=== PATIENT | male | born 1935 | race Caucasian/White ===

== ENCOUNTER 2020-04-22 08:12 | Outpatient (CLI) | payer MEDICARE, OTHER, SELFPAY | END 2020-04-22 08:13 | disposition home or self-care (01) | LOC: WOUND 08:16 | PROVIDERS: Family Provider Family Medicine; PCP Family Medicine; Visit Provider Nurse Practitioner Family | DX: I96 Gangrene, not elsewhere classified (principal); L89.312 Pressure ulcer of right buttock, stage 2 | CPT/HCPCS: 11042; 87070; 87176; 87205; G0463 ==

== ENCOUNTER 2020-05-13 09:46 | Outpatient (CLI) | payer MEDICARE, OTHER, SELFPAY | END 2020-05-13 09:47 | disposition home or self-care (01) | LOC: WOUND 09:49 | PROVIDERS: Family Provider Family Medicine; PCP Family Medicine; Visit Provider Nurse Practitioner Family | DX: Z09 Encounter for follow-up examination after completed treatment for conditions other than malignant neoplasm (principal) | CPT/HCPCS: G0463 ==

== ENCOUNTER 2020-06-06 17:02 | Emergency (ER) | payer MEDICARE, OTHER, SELFPAY ==
[2020-06-06 17:06] VITALS: BP 216/96; PULSE 125; RESP 32; TEMP 36.8; O2SAT 96; BMI 23.0
--- NOTE | 2020-06-06 17:19 | ECG_ITS ---
[facility] Test Date: 2020-06-06 Pat Name: Otoniel Beard Department: Room: Gender: Male Temporary Office Assistant: : [id number] Requested By: Beba Pereira Order Number: [id number] Alex MD: Nae Orourke M.D. Measurements Intervals [place] Rate: 66 P: 50 [place]: 153 QRS: -9 QRSD: 132 T: 30 QT: 398 QTc: 419 Interpretive Statements SINUS RHYTHM INTRAVENTRICULAR CONDUCTION DELAY [130+ ms QRS DURATION] POSSIBLE LATERAL MYOCARDIAL INFARCTION , OF INDETERMINATE AGE [30 ms Q WAVE IN I/aVL/V5/V6] Compared to ECG 02/22/2018 09:58:12 Intraventricular conduction delay now present Myocardial infarct finding now present Sinus bradycardia no longer present Electronically Signed On 06-06-2020 20:07:16 CDT by Nae Orourke M.D. [email or web address]
--- NOTE | 2020-06-06 17:20 | XRR_ITS ---
PROCEDURE INFORMATION: Exam: XR Chest Exam date and time: 06/06/2020 5:37 PM Age: 84 years old Clinical indication: Shortness of breath; Additional info: SOB TECHNIQUE: Imaging protocol: XR of the chest Views: 1 view. COMPARISON: CR Chest 1 [place] [id number] 02/18/2018 7:00 AM FINDINGS: Lungs: Well inflated and clear. Pleural spaces: Unremarkable. No pleural effusion. No pneumothorax. Heart/Mediastinum: The cardiac shadow is normal in size. Bones/joints: No acute abnormality. XR/XR chest 1V portable [id number] IMPRESSION: No acute findings.
--- NOTE | 2020-06-06 17:35 | CTR_ITS ---
PROCEDURE INFORMATION: Exam: CT Abdomen And Pelvis With Contrast Exam date and time: 06/06/2020 6:36 PM Age: 84 years old Clinical indication: Abdominal pain; Generalized; Patient HX: C/O abd pain w distention; Additional info: Abd distention, pain, HX of hernia TECHNIQUE: Imaging protocol: Computed tomography of the abdomen and pelvis with contrast. Radiation optimization: All CT scans at this facility use at least one of these dose optimization techniques: automated exposure control; mA and/or kV adjustment per patient size (includes targeted exams where dose is matched to clinical indication); or iterative reconstruction. Contrast material: OMNI 300; Contrast volume: 95 ml; Contrast route: INTRAVENOUS (IV); COMPARISON: CR Hip 2-3v RIGHT wwo Pelv* [id number] 10/01/2015 11:24 AM RADIATION DOSE METRICS: Total DLP (mGy-cm): 1722.76 FINDINGS: Lungs: The visualized lung bases are clear. Liver: A 2.6 cm low-density lesion in the left hepatic lobe appears benign and does not require dedicated imaging follow-up. The liver is otherwise normal in appearance. Gallbladder and bile ducts: Multiple small calcified gallstones. No signs of acute cholecystitis. Pancreas: No evidence of mass. No ductal dilation. Spleen: No splenomegaly or mass. Adrenal glands: Normal. Kidneys and ureters: A 1 cm simple inferior left renal cyst does not require further imaging. A 1.7 cm inferior right renal cyst does not require further imaging. A 2.3 cm cystic lesion in the superior right kidney with some peripheral calcification and distortion of the adjacent renal parenchyma. No urinary tract stones, hydroureter or hydronephrosis. Stomach and bowel: Scattered diverticula throughout the colon. No signs of acute diverticulitis. No focal bowel wall mass or thickening. No signs of obstruction. Appendix: No evidence of appendicitis. Intraperitoneal space: No free air. No free fluid or evidence of abscess. Vasculature: Multiple systemic vascular calcifications. Lymph nodes: No lymphadenopathy. Urinary bladder: Normal CT appearance. Reproductive: Prostate gland is mildly enlarged at 4.8 cm and contains nonspecific calcification. Bones/joints: Status post right hip arthroplasty. Moderate degenerative changes of the left hip. Moderate to severe degenerative changes of the spine. Soft tissues: Fat containing inguinal hernias, greater on the left. Very small fat containing periumbilical hernia. CT/CT abdomen pelvis w con* [id number] IMPRESSION: 1. Scattered diverticulosis without signs of diverticulitis. The moderate amount of formed stool throughout the colon. 2. A 2.3 cm cystic lesion in the superior right kidney with some peripheral calcification is indeterminate. This may treatment changes of a renal lesion or indeterminate cystic lesion. If desired a can be further investigated with renal ultrasound or MRI. 3. Multiple small calcified gallstones. No signs of acute cholecystitis. COMMENTS: Consistent with the [employer]'s Incidental Findings Committee white paper (J Am Vilma Radiol 2018): Any incidental renal lesion less than 1 cm or classified as too small to characterize, or any incidental cystic renal lesion characterized as simple-appearing, is likely benign. No follow-up imaging is recommended for these lesions per consensus recommendations based on imaging criteria. Radiation Dose CTDIVOL = (mGy): DLP = 1722.76 (mGy-cm)
--- NOTE | 2020-06-06 17:44 | W.ED.ABDPA2 ---
Documented by User: Beba Pereira MD 06/06/20 20:53 HPI - Abdominal Pain General: Chief Complaint: Abdominal Pain Stated Complaint: SOB, ABD PAIN Time Seen by Provider: 06/06/20 17:18 Source: patient Mode of arrival: ambulatory History of Present Illness: HPI narrative: 84-year-old male with abdominal pain since 2 PM this afternoon, fairly sudden onset. Has not had symptoms like this in the past. No associated nausea, vomiting, diarrhea. No fever. He is diaphoretic. No chest pain or shortness of breath. Pain is better if he repeatedly presses down on the area. No history of TIA, CAD, or other arterial disease. No fever. No hematochezia. MD elicited complaint: abdominal pain Associated Symptoms: Reports belching, bloating and GI cramping; Denies coffee ground emesis, constipation, diarrhea, dysuria, fever(s), heartburn, hematemesis, nausea and vomiting Review of Systems General: Reports: 10 or more systems reviewed and unremarkable except in HPI and below Const: Denies: fever(s), chills, body aches, change in appetite or fatigue Card: Denies: chest pain, palpitations or irregular heart rhythm Resp: Reports: wheezing; Denies: dyspnea or productive cough GI: Reports: abdominal pain, bloating, GI cramping and belching; Denies: nausea, vomiting, hematemesis, coffee ground emesis, dysphagia, heartburn, diarrhea or constipation : Denies: difficulty urinating, dysuria or urinary frequency Musc: Denies: back pain, extremity pain or extremity swelling Skin/Breast: Denies: rash, pruritus or erythema Neuro: Denies: headache(s), numbness in extremities or weakness in extremities Psych: Denies: anxiety, depression or mood swings Shorty/Lymph: Denies: easy bruising or easy bleeding Physical Exam Const: COMMON NORMALS: average body habitus and patient oriented x3 GENERAL APPEARANCE: in distress, anxious, ill appearing, frail appearing and diaphoretic HENMT: COMMON NORMALS: normocephalic and atraumatic HEAD & SCALP: normocephalic and atraumatic FACE & SINUS: normal facial exam and face symmetric Eye: COMMON NORMALS: Equal, round and reactive pupils present, EOMs intact bilaterally, conjunctivae normal and no scleral icterus CONJUNCTIVA: Yes conjunctivae normal PUPIL: Yes Equal, round and reactive pupils present Neck/C-Spine: COMMON NORMALS: full ROM, no lymphadenopathy and supple Chest: COMMONS NORMALS: normal inspection of the chest and normal palpation of entire chest wall Resp: EFFORT & INSPECTION: Yes tachypneic, No respiratory distress, No labored, No grunting, No Actively coughing, No retractions and No uses accessory muscles Cardio: COMMON NORMALS: regular rate, regular rhythm, S1 normal heart sound present and S2 normal heart sound present JUGULAR VENOUS DISTENTION: no JVD RATE: regular rate RHYTHM: regular rhythm HEART SOUNDS: S1 normal heart sound present and S2 normal heart sound present BRUITS: no abdominal aortic bruits and no carotid bruits GI: COMMON NORMALS: Soft to palpation INSPECTION: No abdominal wall ecchymosis, No Abdominal wall edema, Yes abdominal distension, No incision, Yes central obesity, No visible pulsation, No Localized GI swelling present and No GI erythema present AUSCULTATION: Yes Hyperactive bowel sounds present and Yes High-pitched bowel sounds present PALPATION: Yes Soft to palpation, Yes Tenderness to palpation present (GI) Details: RLQ, RUQ and other (Periumbilical), Yes Hernia present umbilical (Small, reducible, nontender), No Ascites present, No Abdominal wall crepitus present and No Rebound tenderness present Extremity: COMMON NORMALS: normal to inspection, full ROM, capillary refill normal and no clubbing, cyanosis or edema Neuro: COMMON NORMALS: patient oriented x3, no focal motor deficits and no sensory deficits noted Skin: COMMON NORMALS: no rashes or lesions noted, no wounds and no jaundice GENERAL SKIN EXAM: no rashes or lesions noted Course Vital Signs: Vital signs: Vital Signs Temperature 98.2 F 06/06/20 17:06 Pulse Rate 62 06/06/20 20:00 Respiratory Rate 15 06/06/20 20:00 Blood Pressure 154/75 06/06/20 20:00 Pulse Oximetry 97 06/06/20 20:00 MDM - Abdominal Pain MDM Narrative: Medical decision making narrative: 84-year-old with acute abdominal pain since 2 PM today. On arrival he was tachycardic, hypertensive, and distress, diaphoretic and pale. Abdomen slightly distended, but without guarding or rebound. Hyperactive bowel sounds. Was able to improve his hyperventilation with coaching, his eye heart rate initially may have been artifact, as he leveled out in the 60s soon after getting to the room. Routine labs pending, CT abdomen pelvis with contrast pending. Pain control, IV fluid. Primary DDx to rule out; aortic dissection, mesenteric ischemia, perforated bowel. Case will be signed out to Dr. Murray at 6 PM- Differential Diagnosis: Differential diagnosis abdominal pain: Likely abdominal pain, acute appendicitis, constipation, diverticulitis, gastroenteritis, pancreatitis and small bowel obstruction Medical Records: Attestation: I reviewed the patient's medical records. Lab Data: Attestation: I reviewed the patient's lab results. Labs: Lab Results 06/06/20 06/06/20 06/06/20 Range/Units 17:39 17:39 17:39 WBC 5.8 (4.0-10.0) 10^3/ uL RBC 4.89 (4.1-5.3) 10^6/u L Hgb 15.2 (11.7-16.6) g/dL Hct 43.8 (42.0-52.0) % MCV 89.6 (80-94) fL MCH 31.1 (28.0-34.0) pg MCHC 34.7 (30.0-36.0) g/dL RDW 12.0 L (12.1-15.1) % Plt Count 173 (130-400) 10^3/c mm MPV 10.5 H (7.4-10.4) fL Neut % (Auto) 64.4 % Lymph % (Auto) 20.0 % [place] % (Auto) 11.1 % Eos % (Auto) 3.7 % Baso % (Auto) 0.5 % Neut # (Auto) 3.70 (1.8-7.7) 10^3/u L Lymph # (Auto) 1.2 (0.8-4.8) 10^3/u L [place] # (Auto) 0.6 (0.2-0.9) 10^3/u L Eos # (Auto) 0.2 (0.0-0.8) 10^3/u L Baso # (Auto) 0.0 (0.0-0.1) 10^3/u L Nucleated RBC % (a uto) 0 % Nucleated RBCs # 0.0 /100WBC PT 12.70 (12.1-14.9) SECO NDS INR 0.93 (0.8-1.2) Specimen Type Sample Site ABG pH (7.35-7.45) ABG pCO2 (35-45) mmHg ABG pO2 (80.0-100.0) mmH g ABG HCO3 (22-26) mmol/L ABG O2 Saturation ABG Base Excess (-2.0-2.0) mmol/ L Joao Test A-a O2 Gradient (5-10) mmHg Hematocrit (42-52) % Hgb O2 Saturation (95-100) % Carboxyhemoglobin (0.4-20.1) %THgb Methemoglobin (0.4-1.5) % Total Hemoglobin (14-18) g/dL Ionized Calcium (1.1-1.4) mmol/L O2 Delivery Device Reading Assistant ID Sodium 140 (136-145) mmol/L Potassium 4.0 (3.5-5.1) mmol/L Chloride 102 (98-107) mmol/L Carbon Dioxide 23 (22-29) mmol/L Anion Gap 19.0 (5-19) BUN 17 (8-23) mg/dL Creatinine 1.0 (0.7-1.2) mg/dL GFR Calculation Not Reportable Glucose 109 (65-115) mg/dL Calculated Osmolal ity 292 (285-295) mOsm/k g Lactic Acid (0.5-2.2) mmol/L Calcium 9.5 (8.5-10.5) mg/dL Magnesium 1.9 (1.7-2.3) mg/dL Total Bilirubin 0.4 (0.15-1.2) mg/dL AST 19 (0-40) U/L ALT 20 (0-41) U/L Alkaline Phosphata se 78 (40-130) IU/L Troponin T Baselin e (0-15) ng/L Troponin T 120 Min [place] (0-15) ng/L Delta Troponin T (0-10) ABS# C-Reactive Protein 1.5 (0.0-4.9) mg/L NT-Pro-B Natriuret Pep 97 (0-450) pg/mL Total Protein 6.9 (6.6-8.7) g/dL Albumin 4.2 (3.5-5.2) g/dL Globulin 2.7 (1.3-4.6) g/dL 06/06/20 06/06/20 06/06/20 Range/Units 17:39 17:39 19:05 WBC (4.0-10.0) 10^3/ uL RBC (4.1-5.3) 10^6/u L Hgb (11.7-16.6) g/dL Hct (42.0-52.0) % MCV (80-94) fL MCH (28.0-34.0) pg MCHC (30.0-36.0) g/dL RDW (12.1-15.1) % Plt Count (130-400) 10^3/c mm MPV (7.4-10.4) fL Neut % (Auto) % Lymph % (Auto) % [place] % (Auto) % Eos % (Auto) % Baso % (Auto) % Neut # (Auto) (1.8-7.7) 10^3/u L Lymph # (Auto) (0.8-4.8) 10^3/u L [place] # (Auto) (0.2-0.9) 10^3/u L Eos # (Auto) (0.0-0.8) 10^3/u L Baso # (Auto) (0.0-0.1) 10^3/u L Nucleated RBC % (a uto) % Nucleated RBCs # /100WBC PT (12.1-14.9) SECO NDS INR (0.8-1.2) Specimen Type Arterial Sample Site Radial, right ABG pH 7.44 (7.35-7.45) ABG pCO2 38.0 (35-45) mmHg ABG pO2 79.7 L (80.0-100.0) mmH g ABG HCO3 25.8 (22-26) mmol/L ABG O2 Saturation 96.9 ABG Base Excess 1.8 (-2.0-2.0) mmol/ L Joao Test Pos A-a O2 Gradient 3.0 L (5-10) mmHg Hematocrit 44.9 (42-52) % Hgb O2 Saturation 95.6 (95-100) % Carboxyhemoglobin 0.7 (0.4-20.1) %THgb Methemoglobin 0.6 (0.4-1.5) % Total Hemoglobin 14.6 (14-18) g/dL Ionized Calcium 1.2 (1.1-1.4) mmol/L O2 Delivery Device None Reading Assistant ID Elllpe Sodium 139.0 (136-145) mmol/L Potassium 3.8 (3.5-5.1) mmol/L Chloride (98-107) mmol/L Carbon Dioxide (22-29) mmol/L Anion Gap (5-19) BUN (8-23) mg/dL Creatinine (0.7-1.2) mg/dL GFR Calculation Glucose 97.0 (65-115) mg/dL Calculated Osmolal ity (285-295) mOsm/k g Lactic Acid 3.1 H (0.5-2.2) mmol/L Calcium (8.5-10.5) mg/dL Magnesium (1.7-2.3) mg/dL Total Bilirubin (0.15-1.2) mg/dL AST (0-40) U/L ALT (0-41) U/L Alkaline Phosphata se (40-130) IU/L Troponin T Baselin e 12 (0-15) ng/L Troponin T 120 Min [place] (0-15) ng/L Delta Troponin T (0-10) ABS# C-Reactive Protein (0.0-4.9) mg/L NT-Pro-B Natriuret Pep (0-450) pg/mL Total Protein (6.6-8.7) g/dL Albumin (3.5-5.2) g/dL Globulin (1.3-4.6) g/dL 06/06/20 Range/Units 19:28 WBC (4.0-10.0) 10^3/ uL RBC (4.1-5.3) 10^6/u L Hgb (11.7-16.6) g/dL Hct (42.0-52.0) % MCV (80-94) fL MCH (28.0-34.0) pg MCHC (30.0-36.0) g/dL RDW (12.1-15.1) % Plt Count (130-400) 10^3/c mm MPV (7.4-10.4) fL Neut % (Auto) % Lymph % (Auto) % [place] % (Auto) % Eos % (Auto) % Baso % (Auto) % Neut # (Auto) (1.8-7.7) 10^3/u L Lymph # (Auto) (0.8-4.8) 10^3/u L [place] # (Auto) (0.2-0.9) 10^3/u L Eos # (Auto) (0.0-0.8) 10^3/u L Baso # (Auto) (0.0-0.1) 10^3/u L Nucleated RBC % (a uto) % Nucleated RBCs # /100WBC PT (12.1-14.9) SECO NDS INR (0.8-1.2) Specimen Type Sample Site ABG pH (7.35-7.45) ABG pCO2 (35-45) mmHg ABG pO2 (80.0-100.0) mmH g ABG HCO3 (22-26) mmol/L ABG O2 Saturation ABG Base Excess (-2.0-2.0) mmol/ L Joao Test A-a O2 Gradient (5-10) mmHg Hematocrit (42-52) % Hgb O2 Saturation (95-100) % Carboxyhemoglobin (0.4-20.1) %THgb Methemoglobin (0.4-1.5) % Total Hemoglobin (14-18) g/dL Ionized Calcium (1.1-1.4) mmol/L O2 Delivery Device Reading Assistant ID Sodium (136-145) mmol/L Potassium (3.5-5.1) mmol/L Chloride (98-107) mmol/L Carbon Dioxide (22-29) mmol/L Anion Gap (5-19) BUN (8-23) mg/dL Creatinine (0.7-1.2) mg/dL GFR Calculation Glucose (65-115) mg/dL Calculated Osmolal ity (285-295) mOsm/k g Lactic Acid (0.5-2.2) mmol/L Calcium (8.5-10.5) mg/dL Magnesium (1.7-2.3) mg/dL Total Bilirubin (0.15-1.2) mg/dL AST (0-40) U/L ALT (0-41) U/L Alkaline Phosphata se (40-130) IU/L Troponin T Baselin e (0-15) ng/L Troponin T 120 Min [place] 11.60 (0-15) ng/L Delta Troponin T -0.40 L (0-10) ABS# C-Reactive Protein (0.0-4.9) mg/L NT-Pro-B Natriuret Pep (0-450) pg/mL Total Protein (6.6-8.7) g/dL Albumin (3.5-5.2) g/dL Globulin (1.3-4.6) g/dL Discharge Plan Discharge Patient Disposition: Home Clinical Impression: Abdominal pain Qualifiers: Abdominal location: generalized Qualified Code(s): R10.84 - Generalized abdominal pain Condition: Stable Prescriptions: New Protonix 40 mg tablet,delayed release (DR/EC) 40 mg PO DAILY Qty: 60 RF: 0 No Action meloxicam 15 mg tablet 15 mg PO DAILY@0700 RF: 0 galantamine 12 mg tablet 12 mg PO BID@0700,1900 RF: 0 metoprolol ta-hydrochlorothiaz 100-25 mg tablet 1 tab PO DAILY@0700 RF: 0 citalopram 20 mg tablet 20 mg PO DAILY@0700 RF: 0 tamsulosin 0.4 mg capsule 0.4 mg PO DAILY@0700 RF: 0 pravastatin 20 mg tablet 20 mg PO DAILY@0700 RF: 0 memantine 10 mg tablet 10 mg PO BID@0700,1900 RF: 0 melatonin 3 mg Tablet 3 mg PO BEDTIME@1900 RF: 0 Vitamin B-12 1 tab PO DAILY@0700 RF: 0 Vitamin D3 1 tab PO DAILY@0700 RF: 0 Discharge Orders: Discharge ED (Routine); Ordered 06/06/20 Ordered By: Jose Luis Murray Referrals: Otoniel Aguilera MD [Primary Care Provider] - 1-3 days Discharge Diet: Advance as tolerated Discharge Activity: Resume usual activity Patient Instructions: Abdominal Pain (ED) Coding Level of Care Code ED Broommaker for Yuryg Fwd Exam Comprehensive Documented by User: Jose Luis Murray MD 06/06/20 20:30 HPI - Abdominal Pain General: Chief Complaint: Abdominal Pain Stated Complaint: SOB, ABD PAIN Time Seen by Provider: 06/06/20 17:18 Course Vital Signs: Vital signs: Vital Signs Temperature 98.2 F 06/06/20 17:06 Pulse Rate 62 06/06/20 20:00 Respiratory Rate 15 06/06/20 20:00 Blood Pressure 154/75 06/06/20 20:00 Pulse Oximetry 97 06/06/20 20:00 MDM - Abdominal Pain MDM Narrative: Medical decision making narrative: Otoniel presents here with abdominal pain could be gastritis. Patient's blood work and CT abdomen here shows no acute findings. I did go over the incidental findings on the CT abdomen he is to follow-up with his PCP. We will place him on Protonix. He is return if worsening. He understands and agrees to plan. Initial repeat troponins are negative as well and he has no signs of cardiac cause. Lab Data: Labs: Lab Results 06/06/20 06/06/20 06/06/20 Range/Units 17:39 17:39 17:39 WBC 5.8 (4.0-10.0) 10^3/ uL RBC 4.89 (4.1-5.3) 10^6/u L Hgb 15.2 (11.7-16.6) g/dL Hct 43.8 (42.0-52.0) % MCV 89.6 (80-94) fL MCH 31.1 (28.0-34.0) pg MCHC 34.7 (30.0-36.0) g/dL RDW 12.0 L (12.1-15.1) % Plt Count 173 (130-400) 10^3/c mm MPV 10.5 H (7.4-10.4) fL Neut % (Auto) 64.4 % Lymph % (Auto) 20.0 % [place] % (Auto) 11.1 % Eos % (Auto) 3.7 % Baso % (Auto) 0.5 % Neut # (Auto) 3.70 (1.8-7.7) 10^3/u L Lymph # (Auto) 1.2 (0.8-4.8) 10^3/u L [place] # (Auto) 0.6 (0.2-0.9) 10^3/u L Eos # (Auto) 0.2 (0.0-0.8) 10^3/u L Baso # (Auto) 0.0 (0.0-0.1) 10^3/u L Nucleated RBC % (a uto) 0 % Nucleated RBCs # 0.0 /100WBC PT 12.70 (12.1-14.9) SECO NDS INR 0.93 (0.8-1.2) Specimen Type Sample Site ABG pH (7.35-7.45) ABG pCO2 (35-45) mmHg ABG pO2 (80.0-100.0) mmH g ABG HCO3 (22-26) mmol/L ABG O2 Saturation ABG Base Excess (-2.0-2.0) mmol/ L Joao Test A-a O2 Gradient (5-10) mmHg Hematocrit (42-52) % Hgb O2 Saturation (95-100) % Carboxyhemoglobin (0.4-20.1) %THgb Methemoglobin (0.4-1.5) % Total Hemoglobin (14-18) g/dL Ionized Calcium (1.1-1.4) mmol/L O2 Delivery Device Reading Assistant ID Sodium 140 (136-145) mmol/L Potassium 4.0 (3.5-5.1) mmol/L Chloride 102 (98-107) mmol/L Carbon Dioxide 23 (22-29) mmol/L Anion Gap 19.0 (5-19) BUN 17 (8-23) mg/dL Creatinine 1.0 (0.7-1.2) mg/dL GFR Calculation Not Reportable Glucose 109 (65-115) mg/dL Calculated Osmolal ity 292 (285-295) mOsm/k g Lactic Acid (0.5-2.2) mmol/L Calcium 9.5 (8.5-10.5) mg/dL Magnesium 1.9 (1.7-2.3) mg/dL Total Bilirubin 0.4 (0.15-1.2) mg/dL AST 19 (0-40) U/L ALT 20 (0-41) U/L Alkaline Phosphata se 78 (40-130) IU/L Troponin T Baselin e (0-15) ng/L Troponin T 120 Min [place] (0-15) ng/L Delta Troponin T (0-10) ABS# C-Reactive Protein 1.5 (0.0-4.9) mg/L NT-Pro-B Natriuret Pep 97 (0-450) pg/mL Total Protein 6.9 (6.6-8.7) g/dL Albumin 4.2 (3.5-5.2) g/dL Globulin 2.7 (1.3-4.6) g/dL 06/06/20 06/06/20 06/06/20 Range/Units 17:39 17:39 19:05 WBC (4.0-10.0) 10^3/ uL RBC (4.1-5.3) 10^6/u L Hgb (11.7-16.6) g/dL Hct (42.0-52.0) % MCV (80-94) fL MCH (28.0-34.0) pg MCHC (30.0-36.0) g/dL RDW (12.1-15.1) % Plt Count (130-400) 10^3/c mm MPV (7.4-10.4) fL Neut % (Auto) % Lymph % (Auto) % [place] % (Auto) % Eos % (Auto) % Baso % (Auto) % Neut # (Auto) (1.8-7.7) 10^3/u L Lymph # (Auto) (0.8-4.8) 10^3/u L [place] # (Auto) (0.2-0.9) 10^3/u L Eos # (Auto) (0.0-0.8) 10^3/u L Baso # (Auto) (0.0-0.1) 10^3/u L Nucleated RBC % (a uto) % Nucleated RBCs # /100WBC PT (12.1-14.9) SECO NDS INR (0.8-1.2) Specimen Type Arterial Sample Site Radial, right ABG pH 7.44 (7.35-7.45) ABG pCO2 38.0 (35-45) mmHg ABG pO2 79.7 L (80.0-100.0) mmH g ABG HCO3 25.8 (22-26) mmol/L ABG O2 Saturation 96.9 ABG Base Excess 1.8 (-2.0-2.0) mmol/ L Joao Test Pos A-a O2 Gradient 3.0 L (5-10) mmHg Hematocrit 44.9 (42-52) % Hgb O2 Saturation 95.6 (95-100) % Carboxyhemoglobin 0.7 (0.4-20.1) %THgb Methemoglobin 0.6 (0.4-1.5) % Total Hemoglobin 14.6 (14-18) g/dL Ionized Calcium 1.2 (1.1-1.4) mmol/L O2 Delivery Device None Reading Assistant ID Elllpe Sodium 139.0 (136-145) mmol/L Potassium 3.8 (3.5-5.1) mmol/L Chloride (98-107) mmol/L Carbon Dioxide (22-29) mmol/L Anion Gap (5-19) BUN (8-23) mg/dL Creatinine (0.7-1.2) mg/dL GFR Calculation Glucose 97.0 (65-115) mg/dL Calculated Osmolal ity (285-295) mOsm/k g Lactic Acid 3.1 H (0.5-2.2) mmol/L Calcium (8.5-10.5) mg/dL Magnesium (1.7-2.3) mg/dL Total Bilirubin (0.15-1.2) mg/dL AST (0-40) U/L ALT (0-41) U/L Alkaline Phosphata se (40-130) IU/L Troponin T Baselin e 12 (0-15) ng/L Troponin T 120 Min [place] (0-15) ng/L Delta Troponin T (0-10) ABS# C-Reactive Protein (0.0-4.9) mg/L NT-Pro-B Natriuret Pep (0-450) pg/mL Total Protein (6.6-8.7) g/dL Albumin (3.5-5.2) g/dL Globulin (1.3-4.6) g/dL 06/06/20 Range/Units 19:28 WBC (4.0-10.0) 10^3/ uL RBC (4.1-5.3) 10^6/u L Hgb (11.7-16.6) g/dL Hct (42.0-52.0) % MCV (80-94) fL MCH (28.0-34.0) pg MCHC (30.0-36.0) g/dL RDW (12.1-15.1) % Plt Count (130-400) 10^3/c mm MPV (7.4-10.4) fL Neut % (Auto) % Lymph % (Auto) % [place] % (Auto) % Eos % (Auto) % Baso % (Auto) % Neut # (Auto) (1.8-7.7) 10^3/u L Lymph # (Auto) (0.8-4.8) 10^3/u L [place] # (Auto) (0.2-0.9) 10^3/u L Eos # (Auto) (0.0-0.8) 10^3/u L Baso # (Auto) (0.0-0.1) 10^3/u L Nucleated RBC % (a uto) % Nucleated RBCs # /100WBC PT (12.1-14.9) SECO NDS INR (0.8-1.2) Specimen Type Sample Site ABG pH (7.35-7.45) ABG pCO2 (35-45) mmHg ABG pO2 (80.0-100.0) mmH g ABG HCO3 (22-26) mmol/L ABG O2 Saturation ABG Base Excess (-2.0-2.0) mmol/ L Joao Test A-a O2 Gradient (5-10) mmHg Hematocrit (42-52) % Hgb O2 Saturation (95-100) % Carboxyhemoglobin (0.4-20.1) %THgb Methemoglobin (0.4-1.5) % Total Hemoglobin (14-18) g/dL Ionized Calcium (1.1-1.4) mmol/L O2 Delivery Device Reading Assistant ID Sodium (136-145) mmol/L Potassium (3.5-5.1) mmol/L Chloride (98-107) mmol/L Carbon Dioxide (22-29) mmol/L Anion Gap (5-19) BUN (8-23) mg/dL Creatinine (0.7-1.2) mg/dL GFR Calculation Glucose (65-115) mg/dL Calculated Osmolal ity (285-295) mOsm/k g Lactic Acid (0.5-2.2) mmol/L Calcium (8.5-10.5) mg/dL Magnesium (1.7-2.3) mg/dL Total Bilirubin (0.15-1.2) mg/dL AST (0-40) U/L ALT (0-41) U/L Alkaline Phosphata se (40-130) IU/L Troponin T Baselin e (0-15) ng/L Troponin T 120 Min [place] 11.60 (0-15) ng/L Delta Troponin T -0.40 L (0-10) ABS# C-Reactive Protein (0.0-4.9) mg/L NT-Pro-B Natriuret Pep (0-450) pg/mL Total Protein (6.6-8.7) g/dL Albumin (3.5-5.2) g/dL Globulin (1.3-4.6) g/dL Imaging Data ^: CXR: Attestation: I personally reviewed and interpreted this imaging study as follows: Radiologist's impression: [address] [address] XRay Report Signed Patient: Otoniel Beard Unit #: [id number] : 1935 Age/Sex: 84 / M ADM Date: 06/06/20 Loc: ER Room/Bed: Attending Dr: Ordering Provider/Ordering MD: Beba Pereira MD Date of Service: 06/06/20 Procedure(s): XR chest 1V portable [id number] Accession Number(s): [id number] Report Number: [id number] PROCEDURE INFORMATION: Exam: XR Chest Exam date and time: 06/06/2020 5:37 PM Age: 84 years old Clinical indication: Shortness of breath; Additional info: SOB TECHNIQUE: Imaging protocol: XR of the chest Views: 1 view. COMPARISON: CR Chest 1 [place] [id number] 02/18/2018 7:00 AM FINDINGS: Lungs: Well inflated and clear. Pleural spaces: Unremarkable. No pleural effusion. No pneumothorax. Heart/Mediastinum: The cardiac shadow is normal in size. Bones/joints: No acute abnormality. XR/XR chest 1V portable [id number] IMPRESSION: No acute findings. Discharge Plan Discharge Patient Disposition: Home Clinical Impression: Abdominal pain Qualifiers: Abdominal location: generalized Qualified Code(s): R10.84 - Generalized abdominal pain Condition: Stable Prescriptions: New Protonix 40 mg tablet,delayed release (DR/EC) 40 mg PO DAILY Qty: 60 RF: 0 No Action meloxicam 15 mg tablet 15 mg PO DAILY@0700 RF: 0 galantamine 12 mg tablet 12 mg PO BID@0700,1900 RF: 0 metoprolol ta-hydrochlorothiaz 100-25 mg tablet 1 tab PO DAILY@0700 RF: 0 citalopram 20 mg tablet 20 mg PO DAILY@0700 RF: 0 tamsulosin 0.4 mg capsule 0.4 mg PO DAILY@0700 RF: 0 pravastatin 20 mg tablet 20 mg PO DAILY@0700 RF: 0 memantine 10 mg tablet 10 mg PO BID@0700,1900 RF: 0 melatonin 3 mg Tablet 3 mg PO BEDTIME@1900 RF: 0 Vitamin B-12 1 tab PO DAILY@0700 RF: 0 Vitamin D3 1 tab PO DAILY@0700 RF: 0 Discharge Orders: Discharge ED (Routine); Ordered 06/06/20 Ordered By: Jose Luis Murray Referrals: Otoniel Aguilera MD [Primary Care Provider] - 1-3 days Discharge Diet: Advance as tolerated Discharge Activity: Resume usual activity Patient Instructions: Abdominal Pain (ED) Coding Level of Care Code ED Broommaker for Yuryg Fwd Exam Comprehensive
[2020-06-06 17:45] VITALS: PULSE 69; RESP 21; O2SAT 98
[2020-06-06 17:49] LABS: Basophils % 0.5 %; Eosinophils # 0.2 10^3/uL (0.0-0.8); Eosinophils % 3.7 %; Hematocrit 43.8 % (42.0-52.0); Hemoglobin 15.2 g/dL (11.7-16.6); Lymphocytes # 1.2 10^3/uL (0.8-4.8); Mean Corpuscular HGB Conc 34.7 g/dL (30.0-36.0); Mean Corpuscular Hemoglobin 31.1 pg (28.0-34.0); Mean Corpuscular Volume 89.6 fL (80-94); Mean Platelet Volume 10.5 fL (7.4-10.4); Monocytes # 0.6 10^3/uL (0.2-0.9); Monocytes % 11.1 %; Neutrophils % 64.4 %; Nucleated Red Blood Cells % 0 %; Platelet Count 173 10^3/cmm (130-400); Red Blood Count 4.89 10^6/uL (4.1-5.3); White Blood Count 5.8 10^3/uL (4.0-10.0)
[2020-06-06 17:56] VITALS: RESP 39; O2SAT 98
[2020-06-06] MEDS: fentaNYL 50 mcg/mL INJ 2mL 75 MCG IVP (17:56)
[2020-06-06] MEDS: ondansetron 2 mg/ML SDV 2 mL 4 MG IVP (17:57)
[2020-06-06 18:03] LABS: INR 0.93 (0.8-1.2)
[2020-06-06 18:08] LABS: Lactic Sepsis W/Reflex 3.1 mmol/L (0.5-2.2)
[2020-06-06 18:09] LABS: Troponin(5th) Baseline 12 ng/L (0-15)
[2020-06-06 18:18] LABS: Alanine Aminotransferase 20 U/L (0-41); Albumin Level 4.2 g/dL (3.5-5.2); Alkaline Phosphatase 78 IU/L (40-130); Aspartate Amino Transferase 19 U/L (0-40); Blood Urea Nitrogen 17 mg/dL (8-23); C Reactive Protein 1.5 mg/L (0.0-4.9); Calcium 9.5 mg/dL (8.5-10.5); Carbon Dioxide 23 mmol/L (22-29); Chloride 102 mmol/L (98-107); Globulin 2.7 g/dL (1.3-4.6); Glucose 109 mg/dL (65-115); Magnesium 1.9 mg/dL (1.7-2.3); NT Pro B Type Natriuretic Pept 97 pg/mL (0-450); Osmolality Calculated 292 mOsm/kg (285-295); Sodium 140 mmol/L (136-145); Total Bilirubin 0.4 mg/dL (0.15-1.2); Total Protein 6.9 g/dL (6.6-8.7)
[2020-06-06] MEDS: iohexol 300 mg/mL 100 mL Btl IV (18:49)
[2020-06-06 18:59] VITALS: BP 158/72; PULSE 64; RESP 17; O2SAT 96
[2020-06-06 19:11] LABS: ABG PH Result 7.44 (7.35-7.45); Arterial Blood Gas Hematocrit 44.9 % (42-52); Base Excess ABG 1.8 mmol/L (-2.0-2.0); Blood Gas Allen Test Pos; Blood Gas Sample Site Radial, right; Blood Gas Sample Type Arterial; Carboxyhemoglobin 0.7 %THgb (0.4-20.1); HCO3 ABG 25.8 mmol/L (22-26); HGB O2 Sat 95.6 % (95-100); Ionized Calcium Level - ABG 1.2 mmol/L (1.1-1.4); Methemoglobin 0.6 % (0.4-1.5); Oxygen Saturation ABG 96.9; PO2 ABG 79.7 mmHg (80.0-100.0); Potassium Level - ABG 3.8 mmol/L (3.5-5.0); Total Hemoglobin 14.6 g/dL (14-18)
[2020-06-06 19:32] LABS: Reflex Lactate Order REFLEX LACTIC ORDERD
[2020-06-06 20:00] VITALS: BP 154/75; PULSE 62; RESP 15; O2SAT 97
[2020-06-06 20:59] VITALS: BP 148/69; PULSE 58; RESP 14; O2SAT 96
== END 2020-06-06 20:59 | disposition home or self-care (01) ==
PROVIDERS: Family Medicine; Emergency Provider Emergency Medicine; PCP Family Medicine
DX: R10.84 Generalized abdominal pain (principal)
CPT/HCPCS: 36415; 36600; 71045; 74177; 80051; 80053; 82330; 82805; 83605; 83735; 83880; 84484; 85025; 85610; 86140; 93005; 96374; 96375; 99284; 99291; J2405; J3010; Q9967

== ENCOUNTER 2020-09-07 02:46 | Emergency (ER) | payer MEDICARE, OTHER, SELFPAY ==
[2020-09-07 02:47] VITALS: BP 175/83; PULSE 63; RESP 17; TEMP 36.6; O2SAT 95; BMI 25.7
--- NOTE | 2020-09-07 02:51 | XRR_ITS ---
PROCEDURE INFORMATION: Exam: XR Left Hip Exam date and time: 09/07/2020 2:51 AM Age: 84 years old Clinical indication: Hip pain; Left hip TECHNIQUE: Imaging protocol: XR Left hip. Views: 2 or 3 views hip with pelvis when performed. COMPARISON: CT abdomen pelvis w con* [id number] 06/06/2020 7:02 PM FINDINGS: Bones/joints: Degenerative change. Soft tissues: 9 mm linear radiopaque density in the soft tissues about the proximal femoral diaphysis. Other findings: Anatomic alignment. XR/XR hip LT 2-3V wo/w pel* [id number] IMPRESSION: Degenerative change.
[2020-09-07 02:52] VITALS: PULSE 62; RESP 18; O2SAT 97
--- NOTE | 2020-09-07 02:52 | ED_ITS ---
HPI - Extremity Problem General: Chief complaint: Extremity Injury, Lower Stated complaint: hip/leg pain Time Seen by Provider: 09/07/20 02:47 Source: patient and EMS Mode of arrival: EMS Limitations: no limitations History of Present Illness: HPI Narrative: 84-year-old male states has been having left hip pain over the last week. States he has had chronic issues with that hip in the past. He states the pain is in the low left lateral hip and is sharp in nature. States is much worse with palpation and movement. It is improved with rest. He denies any recent injuries or falls. He denies any radiation of the pain. Denies any bowel or bladder incontinence. Denies any abdominal pain. Associated symptoms: Deny chest pain, fever(s) or rash Review of Systems Const: Denies: fever(s), chills, body aches or change in appetite Eyes: Denies: blurry vision or eye discomfort ENMT: Denies: throat pain or dental pain Card: Denies: chest pain Resp: Denies: dyspnea GI: Denies: abdominal pain, nausea, vomiting or diarrhea : Denies: dysuria Musc: Reports: joint pain Skin/Breast: Denies: rash Neuro: Denies: headache(s) Psych: Denies: depression Shorty/Lymph: Denies: easy bruising All/Imm: Denies: urticaria Physical Exam Const: COMMON NORMALS: no acute distress, patient oriented x3 and healthy appearing HENMT: COMMON NORMALS: normocephalic and atraumatic HEAD & SCALP: norm ocephalic and atraumatic Eye: COMMON NORMALS: Equal, round and reactive pupils present and EOMs intact bilaterally PUPIL: Yes Equal, round and reactive pupils present Neck/C-Spine: COMMON NORMALS: full ROM and supple Chest: COMMONS NORMALS: normal inspection of the chest and normal palpation of entire chest wall Resp: COMMON NORMALS: normal respiratory effort, No retractions, No use of accessory muscles and clear to auscultation bilaterally AUSCULTATION: clear to auscultation bilaterally Cardio: COMMON NORMALS: regular rate, regular rhythm and No murmurs present (Cardio) RATE: regular rate RHYTHM: regular rhythm GI: COMMON NORMALS: Normal to inspection, nondistended, normoactive bowel sounds present, Soft to palpation, non-tender and no masses PALPATION: Yes Soft to palpation Extremity: COMMON NORMALS: normal to inspection and full ROM NARRATIVE EXTREMITY EXAM: Tenderness over left piriformis muscle. Full range of motion is noted to the left leg with no decreased range of motion but he does have pain with range of motion. No back tenderness patient is able to ambulate. Neuro: COMMON NORMALS: patient oriented x3, moves all extremities and no focal motor deficits Psych: COMMON NORMALS: mental status grossly normal, Normal thought process present and cooperative THOUGHT PROCESS: Normal thought process present Skin: COMMON NORMALS: no rashes or lesions noted and no wounds GENERAL SKIN EXAM: no rashes or lesions noted Course Vital Signs: Vital signs: Vital Signs Temperature 97.8 F 09/07/20 02:47 Pulse Rate 60 09/07/20 03:48 Respiratory Rate 16 09/07/20 03:48 Blood Pressure 200/99 09/07/20 03:48 Pulse Oximetry 94 09/07/20 03:48 MDM - Extremity (Nontraumatic) MDM Narrative: Medical decision making narrative: Patient presents here with left hip pain is likely piriformis syndrome. He is exquisitely tender over his piriformis. His pain was relieved here with feeding. Patient was able ambulate in the ER after that without any pain. X-ray here is normal. Is no signs of septic joint. We will place him on pain meds along with muscle accident and informed him to ice. He is to follow-up his PCP as scheduled on Sunday and return if worsening. Lab Data: Labs: Lab Results 09/07/20 Range/Units 02:55 WBC 9.1 (4.0-10.0) 10^3/ uL RBC 5.02 (4.1-5.3) 10^6/u L Hgb 15.3 (11.7-16.6) g/dL Hct 45.0 (42.0-52.0) % MCV 89.6 (80-94) fL MCH 30.5 (28.0-34.0) pg MCHC 34.0 (30.0-36.0) g/dL RDW 12.5 (12.1-15.1) % Plt Count 171 (130-400) 10^3/c mm MPV 9.9 (7.4-10.4) fL Neut % (Auto) 69.8 % Lymph % (Auto) 14.0 % [place] % (Auto) 10.6 % Eos % (Auto) 4.4 % Baso % (Auto) 0.6 % Neut # (Auto) 6.33 (1.8-7.7) 10^3/u L Lymph # (Auto) 1.3 (0.8-4.8) 10^3/u L [place] # (Auto) 1.0 H (0.2-0.9) 10^3/u L Eos # (Auto) 0.4 (0.0-0.8) 10^3/u L Baso # (Auto) 0.1 (0.0-0.1) 10^3/u L Nucleated RBC % (a uto) 0 % Nucleated RBCs # 0.0 /100WBC Imaging Data^: xr L hip: Attestation: I personally reviewed and interpreted this imaging study as follows: My impression: no acute abnormality Discharge Plan Discharge Patient Disposition: Home Clinical Impression: Hip pain, left Condition: Stable Prescriptions: New hydrocodone-acetaminophen 5-325 mg tablet 1 tab PO Q6H PRN (Reason: pain) Qty: 14 RF: 0 Robaxin-750 750 mg tablet 750 mg PO Q6H Qty: 30 RF: 0 Naprosyn 500 mg tablet 500 mg PO BID PRN (Reason: pain) Qty: 20 RF: 0 Miralax 17 gram powder in packet 17 g PO DAILY PRN (Reason: constipation) Qty: 14 RF: 0 Colace 100 mg capsule 100 mg PO BID Qty: 14 RF: 0 No Action meloxicam 15 mg tablet 15 mg PO DAILY@0700 RF: 0 galantamine 12 mg tablet 12 mg PO BID@0700,1900 RF: 0 metoprolol ta-hydrochlorothiaz 100-25 mg tablet 1 tab PO DAILY@0700 RF: 0 citalopram 20 mg tablet 20 mg PO DAILY@0700 RF: 0 tamsulosin 0.4 mg capsule 0.4 mg PO DAILY@0700 RF: 0 pravastatin 20 mg tablet 20 mg PO DAILY@0700 RF: 0 memantine 10 mg tablet 10 mg PO BID@0700,1900 RF: 0 melatonin 3 mg Tablet 3 mg PO BEDTIME@1900 RF: 0 Vitamin B-12 1 tab PO DAILY@0700 RF: 0 Vitamin D3 1 tab PO DAILY@0700 RF: 0 Protonix 40 mg tablet,delayed release (DR/EC) 40 mg PO DAILY Qty: 60 RF: 0 Discharge Orders: Discharge ED (Routine); Ordered 09/07/20 Ordered By: Jose Luis Murray Referrals: Otoniel Aguilera MD [Primary Care Provider] - 1-3 days Discharge Diet: Advance as tolerated Discharge Activity: Resume usual activity Patient Instructions: Piriformis Syndrome (ED), Opioid Safety Coding Level of Care Code ED Bowling [employer] Patcher for Chg Fwd Exam Comprehensive
[2020-09-07 03:01] LABS: Basophils # 0.1 10^3/uL (0.0-0.1); Basophils % 0.6 %; Eosinophils # 0.4 10^3/uL (0.0-0.8); Eosinophils % 4.4 %; Hemoglobin 15.3 g/dL (11.7-16.6); Lymphocytes # 1.3 10^3/uL (0.8-4.8); Mean Corpuscular Hemoglobin 30.5 pg (28.0-34.0); Mean Corpuscular Volume 89.6 fL (80-94); Mean Platelet Volume 9.9 fL (7.4-10.4); Monocytes % 10.6 %; Neutrophils # 6.33 10^3/uL (1.8-7.7); Neutrophils % 69.8 %; Nucleated Red Blood Cells % 0 %; Platelet Count 171 10^3/cmm (130-400); Red Blood Count 5.02 10^6/uL (4.1-5.3); Red Cell Distribution Width 12.5 % (12.1-15.1); White Blood Count 9.1 10^3/uL (4.0-10.0)
[2020-09-07] MEDS: ketorolac 30 mg/mL INJ 10 MG IVP (03:04)
[2020-09-07] MEDS: ondansetron 2 mg/ML SDV 2 mL 4 MG IVP (03:04)
[2020-09-07] MEDS: dexamethasone 4 mg/mL INJ 10 MG IVP (03:18)
[2020-09-07 03:19] VITALS: RESP 18
[2020-09-07] MEDS: morphine 4 mg/mL SDV 1 mL IVP (03:19)
--- NOTE | 2020-09-07 03:26 | PC.NURSE ---
Given extra pillow; placed under L hip for comfort. Daughter in room.
[2020-09-07 03:48] VITALS: BP 200/99; PULSE 60; RESP 16; O2SAT 94
[2020-09-07] MEDS: labetalol 5 mg/mL SDV 20mL 10 MG IVP (03:59)
--- NOTE | 2020-09-07 04:03 | PC.NURSE ---
Ambulated pt per MD. Pt able to ambulate with little assistance, stating I can feel it a little but I can walk now, when before I couldn't bear weight on it at all. notified.
[2020-09-07 04:12] VITALS: BP 157/75; PULSE 60; RESP 18; O2SAT 94
== END 2020-09-07 04:15 | disposition home or self-care (01) ==
PROVIDERS: Emergency Provider Emergency Medicine; PCP Family Medicine
DX: M25.552 Pain in left hip (principal)
CPT/HCPCS: 73502; 85025; 96374; 96375; 99284; J1100; J1885; J2270; J2405; J3490